=== PATIENT | female | born 1990 | race African-American/Black ===

== ENCOUNTER 2017-07-29 23:48 | Emergency (ER) | payer BC, MEDICAID ==
[~2017-07-29] VITALS: Ht 157.5 cm; Wt 65.0 kg
[2017-07-29 23:54] VITALS: BP 122/77
== END 2017-07-30 03:30 | disposition left against medical advice (07) ==
LOC: ER 07-30 00:06
DX: Z53.21 Procedure and treatment not carried out due to patient leaving prior to being seen by health care provider (principal)